=== PATIENT | male | born 1940 | race Asian ===

== ENCOUNTER 2024-03-17 20:30 | Inpatient (IN) | payer MEDICARE, MEDICAID ==
[~2024-03-17] VITALS: Ht 144.8 cm; Wt 43.7 kg
[2024-03-17] MEDS: SODIUM CHLORIDE 0.9% 1,000 ML IV ONE (21:15)
[2024-03-17 21:44] LABS: CHLORIDE 97 mEq/L (98-107); POTASSIUM 4.1 mEq/L (3.5-5.1); SODIUM 130 mEq/L (136-145)
[2024-03-17 21:45] LABS: CARBON DIOXIDE 25 mEq/L (21-32)
[2024-03-17 21:46] LABS: CALCIUM 9.5 mg/dL (8.7-10.4)
[2024-03-17 21:48] LABS: HEMATOCRIT. 39.3 % (42.0-52.0); HEMOGLOBIN. 13.7 g/dL (14.0-18.0); MEAN CORPUSCULAR HEMOGLOBIN 33.1 pg (28.0-32.0); MEAN CORPUSCULAR HGB CONC 34.7 g/dL (31.0-37.0); MEAN CORPUSCULAR VOLUME 95.2 fL (80.0-94.0); MEAN PLATELET VOLUME 6.1 fl (7.4-10.4); PLATELET 157 x1000/uL (130-400); RED BLOOD CELL COUNT 4.13 mill/uL (4.7-6.1); RED CELL DISTRIBUTION WIDTH 13.2 % (11.6-14.6); WHITE BLOOD COUNT 7.2 x1000/uL (4.5-11.0)
[2024-03-17 21:49] LABS: DIFFERENTIAL COMMENT 1
[2024-03-17 21:50] LABS: CREATININE 1.5 mg/dL (0.6-1.3)
[2024-03-17 21:51] LABS: GLUCOSE 133 mg/dL (70-105); LACTIC ACID 2.1 mmol/L (0.4-2.0); UREA NITROGEN BLOOD 26 mg/dL (9-23)
[2024-03-17 22:01] LABS: TROPONIN I HIGH SENSITIVITY 60 ng/L (3.0-53)
[2024-03-17 22:04] LABS: CLARITY URINE CLEAR (CLEAR); COLOR URINE YELLOW (YELLOW); GLUCOSE URINE NEGATIVE (NEGATIVE); KETONES URINE 1+ (NEGATIVE); NITRITE URINE NEGATIVE (NEGATIVE); OCCULT BLOOD URINE NEGATIVE (NEGATIVE); PROTEIN URINE 2+ (NEGATIVE); SPECIFIC GRAVITY URINE 1.018 (1.005-1.030)
[2024-03-17 22:05] LABS: LEUKOCYTE ESTERASE URINE NEGATIVE (NEGATIVE); UROBILINOGEN URINE 1 E.U./dL (0.2-1.0)
[2024-03-17 22:10] LABS: BACTERIA URINE NONE SEEN; RBC URINE NONE SEEN /hpf (0-2); SQUAMOUS EPITHELIAL CELL URINE NONE SEEN /lpf (RARE/1+); WBC URINE NONE SEEN /hpf (0-2)
[2024-03-17] MEDS ORDERED: ZOLPIDEM TARTRATE 5MG TABLET PO PRN (23:00)
[2024-03-17] MEDS ORDERED: ACETAMINOPHEN 325MG TABLET PO PRN ×2 (23:00)
[2024-03-17] MEDS ORDERED: MAGNESIUM/ALUMINUM HYDROXIDE/SIMETHICONE 30ML UDC PO PRN (23:00)
[2024-03-17] MEDS ORDERED: GUAIFENESIN 200MG/10ML SUGAR FREE UDC PO PRN (23:00)
[2024-03-17] MEDS ORDERED: IPRATROPIUM/ALBUTEROL 0.5-3(2.5)MG/3ML NEB NEB PRN (23:00)
[2024-03-17] MEDS ORDERED: ONDANSETRON HCL 4MG/2ML INJ IV PRN (23:00)
[2024-03-17] MEDS ORDERED: DOCUSATE SODIUM 100MG CAPSULE PO PRN (23:00)
[2024-03-17] MEDS ORDERED: NITROGLYCERIN 0.4MG TABLET SL SL PRN (23:00)
[2024-03-17] MEDS ORDERED: CLONIDINE 0.1MG TABLET PO PRN (23:00)
[2024-03-17] MEDS ORDERED: KETOROLAC 15MG/ML VIAL IV PRN (23:12)
[2024-03-17 23:42] LABS: IRON 15 ug/dL (65-175); TRIGLYCERIDE 52 mg/dL (0-150)
[2024-03-17 23:43] LABS: LDL CHOLESTEROL 62 mg/dL (5-100)
[2024-03-17 23:44] LABS: CHOLESTEROL 124 mg/dL (<200); HDL CHOLESTEROL 56 mg/dL (>55)
[2024-03-17 23:45] LABS: TOTAL IRON BINDING CAPACITY 244 ug/dl (250-425)
[2024-03-17 23:47] LABS: T4 FREE 1.69 ng/dL (0.89-1.76); THYROID STIMULATING HORMONE < 0.10 uIU/mL (0.55-4.78)
[2024-03-17 23:51] LABS: FOLIC ACID (FOLATE) SERUM > 20.00 ng/mL (>5.38); VITAMIN B12 SERUM 289 pg/mL (211-911)
[2024-03-18 00:12] LABS: ETHANOL BLOOD < 10 mg/dL (<10)
[2024-03-18 00:32] LABS: PLATELET ESTIMATE NORMAL
[2024-03-18 00:37] VITALS: BP 148/74; PULSE 99; RESP 26; TEMP 37.7808; TEMP 37.808; O2SAT 96
[2024-03-18] MEDS: ASPIRIN 81MG EC TABLET PO SCH (01:14)
[2024-03-18] MEDS: NITROGLYCERIN OINT 1GM/INCH UDPKT TD SCH (01:14)
[2024-03-18] MEDS: AMLODIPINE 10MG TABLET PO SCH (01:14)
[2024-03-18 04:00] VITALS: BP 111/66; PULSE 82; RESP 22; O2SAT 96
[2024-03-18 07:36] LABS: *AMPHETAMINES SCREEN URINE NEGATIVE (NEGATIVE); *BARBITURATES SCREEN URINE NEGATIVE (NEGATIVE); *BENZODIAZEPINES SCREEN URINE NEGATIVE (NEGATIVE); *COCAINE SCREEN URINE NEGATIVE (NEGATIVE); CANNABINOID URINE SCREEN NEGATIVE (NEGATIVE); ECSTASY MDMA SCREEN URINE NEGATIVE (NEGATIVE); METHADONE URINE SCREEN NEGATIVE (NEGATIVE); OPIATES URINE SCREEN NEGATIVE (NEGATIVE); PHENCYCLIDINE URINE SCREEN NEGATIVE (NEGATIVE)
[2024-03-18 08:00] VITALS: BP 108/65; PULSE 71; RESP 21; TEMP 36.89184; O2SAT 99
[2024-03-18] MEDS: ENOXAPARIN 30MG/0.3ML SYR SUBCUT SCH (09:14)
[2024-03-18] MEDS: PANTOPRAZOLE SODIUM 40 MG/VIAL IV SCH (09:14)
[2024-03-18] MEDS: LACTATED RINGERS 1,000 ML IV SCH (11:02)
[2024-03-18 12:00] VITALS: BP 103/60; PULSE 75; RESP 20; TEMP 36.6696; O2SAT 73
[2024-03-18 12:05] LABS: BASOPHILS % 0.1 % (0.0-2.0); HEMATOCRIT. 38.7 % (42.0-52.0); HEMOGLOBIN. 12.9 g/dL (14.0-18.0); LYMPHOCYTES % 8.5 % (20.0-50.0); MEAN CORPUSCULAR HEMOGLOBIN 32.4 pg (28.0-32.0); MEAN CORPUSCULAR HGB CONC 33.4 g/dL (31.0-37.0); MEAN CORPUSCULAR VOLUME 97.1 fL (80.0-94.0); MEAN PLATELET VOLUME 6.4 fl (7.4-10.4); NEUTROPHILS % 81.4 % (40.0-76.0); PLATELET 141 x1000/uL (130-400); RED BLOOD CELL COUNT 3.98 mill/uL (4.7-6.1); RED CELL DISTRIBUTION WIDTH 13.6 % (11.6-14.6); WHITE BLOOD COUNT 8.7 x1000/uL (4.5-11.0)
[2024-03-18 12:06] LABS: CARBON DIOXIDE 24 mEq/L (21-32); CHLORIDE 101 mEq/L (98-107); POTASSIUM 3.5 mEq/L (3.5-5.1); SODIUM 135 mEq/L (136-145)
[2024-03-18 12:07] LABS: CALCIUM 8.5 mg/dL (8.7-10.4)
[2024-03-18 12:11] LABS: CREATININE 1.4 mg/dL (0.6-1.3)
[2024-03-18 12:12] LABS: GLUCOSE 135 mg/dL (70-105); UREA NITROGEN BLOOD 24 mg/dL (9-23)
[2024-03-18 12:13] LABS: ALANINE AMINOTRANSFERASE 16 IU/L (10-49)
[2024-03-18 12:14] LABS: ALBUMIN 3.3 g/dL (3.2-4.8); ASPARTATE AMINOTRANSFERASE 46 IU/L (<34); BILIRUBIN TOTAL 0.7 mg/dL (0.1-1.0); PHOSPHORUS 4.4 mg/dL (2.5-4.9); PROTEIN TOTAL 5.4 g/dL (6.0-8.3)
[2024-03-18 12:15] LABS: CREATINE KINASE MB FRACTION 3.6 ng/mL (0.5-3.6)
[2024-03-18 16:00] VITALS: BP 115/58; PULSE 90; RESP 25; TEMP 36.6696; O2SAT 76
[2024-03-18 16:30] LABS: HEPATITIS B SURFACE ANTIGEN NEGATIVE (Negative)
[2024-03-18 16:51] LABS: HEPATITIS C AB NON REACTIVE (Neg) (Negative)
[2024-03-18 20:00] VITALS: BP 103/55; PULSE 72; RESP 19; TEMP 36.22512; O2SAT 99
[2024-03-18 22:49] LABS: CREATINE KINASE MB FRACTION 3.6 ng/mL (0.5-3.6)
[2024-03-19] VITALS: BP 100/67; PULSE 68; RESP 20; TEMP 36.9474; O2SAT 100
[2024-03-19 04:00] VITALS: BP 100/57; PULSE 71; RESP 22; TEMP 36.22512; O2SAT 95
[2024-03-19 08:00] VITALS: BP 109/59; PULSE 66; RESP 19; TEMP 36.61404; O2SAT 98
[2024-03-19 12:00] VITALS: BP 113/67; PULSE 88; RESP 19; TEMP 36.6696; O2SAT 96
[2024-03-19 16:00] VITALS: BP 97/52; PULSE 83; RESP 22; TEMP 36.61404; O2SAT 96
[2024-03-19 20:00] VITALS: BP 119/67; PULSE 73; RESP 20; TEMP 36.50292; O2SAT 97
[2024-03-20] VITALS: BP 149/76; PULSE 68; RESP 21; TEMP 36.55848; O2SAT 97
[2024-03-20 04:00] VITALS: BP 118/74; PULSE 77; RESP 21; TEMP 36.72516; O2SAT 95
[2024-03-20 08:00] VITALS: BP 134/77; PULSE 82; RESP 18; TEMP 36.89184; O2SAT 98
[2024-03-20 12:00] VITALS: BP 121/72; PULSE 87; RESP 20; TEMP 36.6696; O2SAT 96
[2024-03-20] MEDS: CEFTRIAXONE 1GM/50ML 50 ML IV SCH (14:01)
[2024-03-20] MEDS: AZITHROMYCIN 500 MG in DEXT 5% WATER 250 ML IV SCH (15:03)
[2024-03-20 16:00] VITALS: BP 109/76; PULSE 85; RESP 20; TEMP 36.78072; O2SAT 98
[2024-03-20 20:00] VITALS: BP 122/75; PULSE 73; RESP 21; TEMP 36.44736; O2SAT 99
[2024-03-21] VITALS: BP 147/77; PULSE 70; RESP 21; TEMP 36.78072; O2SAT 97
[2024-03-21 04:00] VITALS: BP 121/67; PULSE 83; RESP 20; TEMP 36.6696; O2SAT 97
[2024-03-21 08:00] VITALS: BP_SYST 123; BP_SYST 140; BP_DIAS 68; BP_DIAS 69; PULSE 75; PULSE 76; RESP 17; RESP 20; TEMP 36.78072; TEMP 36.83628; O2SAT 95; O2SAT 99
[2024-03-21 10:48] VITALS: BP 123/60; PULSE 76; TEMP 98.3; O2SAT 95
[2024-03-21 12:00] VITALS: BP 128/65; PULSE 77; RESP 18; TEMP 36.9474; TEMP 36.94740
[2024-03-21 12:02] VITALS: BP 123/60; PULSE 76; TEMP 98.5; O2SAT 95
[2024-03-21] MEDS ORDERED: AZIT500T8 MT (12:43)
[2024-03-21] MEDS ORDERED: AZITHROMYCIN 500 MG in SODIUM CHLORIDE 0.9% 250 ML IV SCH (13:00)
== END 2024-03-21 14:59 | disposition home health service (06) | DRG 190 ==
LOC: ER 20:30 → 3WST 22:09 → EDBEDREQTM 22:14 → EDBEDREQ 22:14
PROVIDERS: ADMIT Internal Medicine; ATTEND Internal Medicine
DX: I21.4 Non-ST elevation (NSTEMI) myocardial infarction (principal); N17.0 Acute kidney failure with tubular necrosis; G92.8 Other toxic encephalopathy; E87.1 Hypo-osmolality and hyponatremia; E87.20 Acidosis, unspecified; M62.82 Rhabdomyolysis; D64.9 Anemia, unspecified
CPT/HCPCS: 36415; 70551; 71045; 76770; 80048; 80053; 80061; 80305; 80320; 81003; 82550; 82553; 82607; 82746; 83036; 83540; 83550; 83605; 83735; 83880; 84100; 84145; 84439; 84443; 84484; 85025; 86705; 87340; 93005; 93306; 93970; 97166; 99285; J0456; J0696; J1650; J2470; J7030; J7050; J7060; J7120; G0480